=== PATIENT | female | born 1990 | race Caucasian/White ===

== ENCOUNTER 2022-02-15 02:05 | Outpatient (CLI) | payer BC, SELFPAY ==
--- NOTE | 2022-02-15 09:15 | DI.MRI_ITS ---
Exam(s) MR LOWER JOINT LT WO EXAM: MR LOWER JOINT LT WO CLINICAL HISTORY: TEAR OF MCL OF LT KNEE, S83.412A, ACUTE MEDIAL MENSICUS TEAR, S83.242A. TECHNIQUE: Multiplanar multisequence MRI was performed. COMPARISON: CR XR KNEE 4 VIEW LEFT from 01/18/2022 FINDINGS: The examination is limited due to patient motion artifact. BONES: Marrow edema is seen in the lateral femoral condyle and the lateral tibial plateau. There is a nondisplaced fracture involving the posterior aspect of the lateral tibial plateau. JOINTS: Articular cartilage is unremarkable. There is a small amount of fluid in the joint space. TENDONS: Extensor mechanism: Unremarkable. Medial retinaculum: Unremarkable. Lateral retinaculum: Unremarkable. Popliteus: Unremarkable. MUSCLES: Unremarkable. MENISCI: The medial meniscus is unremarkable. The lateral meniscus is unremarkable. SOFT TISSUES: There is mild edema in the soft tissues around the knee. LIGAMENTS: Anterior Cruciate: There is a partial ACL tear. Posterior Cruciate: Unremarkable. Medial Collateral:Unremarkable. Lateral Collateral: Unremarkable. OTHER: IMPRESSION: 1. Partial ACL tear. 2. Findings suggestive of a nondisplaced fracture of the posterior aspect of the lateral tibial plate au. 3. Contusions involving the lateral femoral condyle in the lateral proximal tibia. 4. No evidence of a meniscal tear. No evidence of an MCL tear. DATA REPOSITORY:
== END 2022-02-15 02:25 ==
PROVIDERS: PCP Family Medicine; Visit Provider Nurse Practitioner
DX: S83.512A Sprain of anterior cruciate ligament of left knee, initial encounter (principal); S80.12XA Contusion of left lower leg, initial encounter; X58.XXXA Exposure to other specified factors, initial encounter
CPT/HCPCS: 73721